=== PATIENT | female | born 1940 | race Two or more races ===

== ENCOUNTER 2024-10-08 15:00 | Outpatient (RCR) | payer MEDICAID, SELFPAY ==
--- NOTE | 2024-09-26 08:27 | PTNOTE_ITS ---
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 Pt still has pain (5/10) with activities. Pt ambulates at home with walker. Pt has limitation with standing, walking, chores, self care, balance, stairs, and performing recreational activities. Objective: Right Hip AROM Flexion: 90 deg Abduction: 45 deg Interal and external rotation: NT Extension: 10 deg Right Hip MMTs: grossly 3/5 Assessment: Pt demonstrate right hip mobility and strength deficits s/p hip surgery leading to difficulty with ADLs. Pt will benefit from physical therapy to increase strength, mobility, and work on ambulation Short Term and [facility] Goals 1) Increase hip AROM WNL in 6 wks to be able to perform self care activities 2) Increase right hip MMTs grossly to 4-/5 in 6 wks to be able to walk more than 30 mins with AD 3) Decrease hip pain to 2/10 in 6 wks to be able to stand more than 30 mins 4) Indep with HEP Treatment Plan 1) Manual Therapy 2) Therapeutic Activities 3) Therapeutic Exercises 4) Modalities (ice, heat) 5) Balance Training 6) Gait Training Frequency and Duration: 2 x wk for 6 wks Certification Dates: 09/26/24 to 12/26/23 Procedure Charges OP PT Eval Mod Complex 30 minutes: Yes
--- NOTE | 2024-10-05 14:45 | PT.ODAYNRPT ---
PT Outpatient Daily Note OP Daily Note Outpatient Physical Therapy Treatment Date: 10/05/24 Visit Reasons: Right hip joint post op Subjective: According to son patient walks 3x 50 ft with 4ww at home. Objective: Please see flow chart for list of ther ex performed Assessment: worked on gait today using FWW. cues to pace and decrease downward gaze. Pt fatigue post PT session Plan: Continue with PT Length of Time (minutes) of Treatment: 30 Minutes Procedure Charges Therapeutic Exercise 30 minutes: Yes
--- NOTE | 2024-10-08 15:34 | PT.ODAYNRPT ---
PT Outpatient Daily Note OP Daily Note Outpatient Physical Therapy Treatment Date: 10/08/24 Visit Reasons: Right hip joint post op Subjective: Pt was exhausted after last session. According to daughter Pt may have dementia. Pt's been hallucinating at night. Objective: Please see flow chart for list of ther ex performed Assessment: increase SOB post PT session; pace patient throughout PT session Plan: Continue with PT Length of Time (minutes) of Treatment: 30 Minutes Procedure Charges Therapeutic Exercise 30 minutes: Yes
== END 2024-10-09 23:59 | disposition home or self-care (01) ==
LOC: CPTX 15:00
PROVIDERS: PCP Orthopaedic Surgery; Referring Provider Orthopaedic Surgery; Visit Provider Orthopaedic Surgery
DX: M25.551 Pain in right hip (principal); R53.1 Weakness; R26.2 Difficulty in walking, not elsewhere classified; R26.89 Other abnormalities of gait and mobility; Z96.641 Presence of right artificial hip joint
CPT/HCPCS: 97110; 97162

== ENCOUNTER 2024-11-09 15:00 | Outpatient (RCR) | payer MEDICAID, SELFPAY ==
--- NOTE | 2024-10-11 16:12 | PT.ODAYNRPT ---
PT Outpatient Daily Note OP Daily Note Outpatient Physical Therapy Treatment Date: 10/11/24 Visit Reasons: Right hip post op Subjective: Pt reports hip pain and discomfort. Objective: Please see flow sheet for ther ex list. Assessment: Pt requires verbal cues and demonstration to stay on task with interventions assigned. Plan: Continue with POC. Length of Time (minutes) of Treatment: 30 Minutes Procedure Charges Therapeutic Exercise 30 minutes: Yes
--- NOTE | 2024-10-15 15:47 | PT.ODAYNRPT ---
PT Outpatient Daily Note OP Daily Note Outpatient Physical Therapy Treatment Date: 10/15/24 Visit Reasons: Right hip post op Subjective: Pt walk daily ~ 100 meters with walker. According to son patient continues to have hip pain and wants to see if she can get a massage . Objective: Please see flow chart for list of ther ex performed Assessment: educated patient hip massage is not indicated at this time due to nature of hip procedure. Pt advised to follow THR protocol and focus more on WB and increasing hip strength at this time. Pt's family gave verbal understanding Plan: Continue with PT Length of Time (minutes) of Treatment: 30 Minutes Procedure Charges Therapeutic Exercise 30 minutes: Yes
--- NOTE | 2024-10-17 15:34 | PT.ODAYNRPT ---
PT Outpatient Daily Note OP Daily Note Outpatient Physical Therapy Treatment Date: 10/17/24 Visit Reasons: Right hip post op Subjective: Pt's body ache everywhere. According to daughter the family decided to stop her from taking a presribed pain medication which was causing hallucination. Daugther does notice patient being more fatigue and tired since the medication was stopped. Family plans to consult with neurologist about the medication ~ 2 weeks. Objective: Please see flow chart for list of ther ex performed Assessment: patient more fatigue than usual. Pt was pace throughout PT session; during GT patient require frequent standing rest breaks. Plan: Continue with PT Length of Time (minutes) of Treatment: 30 Minutes Procedure Charges Therapeutic Exercise 30 minutes: Yes
--- NOTE | 2024-10-22 11:02 | PT.ODAYNRPT ---
PT Outpatient Daily Note OP Daily Note Outpatient Physical Therapy Treatment Date: 10/22/24 Visit Reasons: Right hip post op Subjective: Pt's hip is better. No concerns to report. Objective: Please see flow chart for list of ther ex performed Assessment: tolerate exercises performed needs redirection intermittently with exercises Plan: Continue with PT Length of Time (minutes) of Treatment: 30 Minutes Procedure Charges Therapeutic Exercise 30 minutes: Yes
--- NOTE | 2024-10-26 14:21 | PTNOTE_ITS ---
PT Outpatient Daily Note OP Daily Note Outpatient Physical Therapy Treatment Date: 10/26/24 Visit Reasons: Right hip post op Subjective: Pt's been feeling very drowsy lately. Pt is unsure if it's medication related. Daughter who is her coding and reimbursement specialist was not present in today's session. Pt's son was unable to provide much history. Objective: Please see flow chart for list of ther ex performed Assessment: performed more seated exercises today due to slight lethargic and drowsiness noted during PT session. Pt's daughter not present in today's session to provide much information. Pt performed all seated exercises with frequent cues to complete reps. Plan: Continue with PT Length of Time (minutes) of Treatment: 30 Minutes Procedure Charges Therapeutic Exercise 30 minutes: Yes
--- NOTE | 2024-11-02 15:26 | PT.ODAYNRPT ---
PT Outpatient Daily Note OP Daily Note Outpatient Physical Therapy Treatment Date: 11/02/24 Visit Reasons: Right hip post op Subjective: Pt brought in by daughter. Objective: Please see flow sheet for ther ex list. Assessment: Interventions given alternating sitting and standing to maximize pt participation. Plan: Continue with POC. Length of Time (minutes) of Treatment: 30 Minutes Procedure Charges Therapeutic Exercise 30 minutes: Yes
--- NOTE | 2024-11-05 15:22 | PT.ODAYNRPT ---
PT Outpatient Daily Note OP Daily Note Outpatient Physical Therapy Treatment Date: 11/05/24 Visit Reasons: Right hip post op Subjective: According to daughter in law. Pt is more alert today and was able to have a better night sleep. Objective: Please see flow chart for list of ther ex performed Assessment: difficulty walking backward with decrease stride, cues to increase stride. Pt was able to follow cue intermittently. Pt exhibit fatigue post PT session Plan: Conitnue with PT Length of Time (minutes) of Treatment: 30 Minutes Procedure Charges Therapeutic Exercise 30 minutes: Yes
--- NOTE | 2024-11-09 16:10 | PT.ODAYNRPT ---
PT Outpatient Daily Note OP Daily Note Outpatient Physical Therapy Treatment Date: 11/09/24 Visit Reasons: Right hip post op Subjective: Pt c/o lumbar and hip pain L>R. Objective: Please see flow sheet for there x list. Assessment: Performed STM to lateral l/s and B hip, pt tolerated well and reported decrease pain. Plan: Continue with POC. Length of Time (minutes) of Treatment: 30 Minutes Procedure Charges Therapeutic Exercise 30 minutes: Yes
== END 2024-11-09 23:59 | disposition home or self-care (01) ==
LOC: CPTX 15:00
PROVIDERS: PCP Orthopaedic Surgery; Referring Provider Orthopaedic Surgery; Visit Provider Orthopaedic Surgery
DX: M25.551 Pain in right hip (principal); R53.1 Weakness; R26.2 Difficulty in walking, not elsewhere classified; Z96.641 Presence of right artificial hip joint; R26.89 Other abnormalities of gait and mobility
CPT/HCPCS: 97110

== ENCOUNTER 2024-11-14 13:14 | Outpatient (RCR) | payer MEDICAID, SELFPAY ==
--- NOTE | 2024-11-14 14:46 | PT.ODS1RPT ---
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 Pt has been able to walk with walker around and outside of the house. According to family patient has not fallen at home and able to assist more with ADLs. Objective: Right Hip AROM: all motions are WFL Right Hip MMTs: grossly 4-/5 Assessment: Pt demonstrate functional hip mobility and strength allowing her to resume ADLs with less limitation. Pt will no longer benefit from physical therapy due to plateau towards goals. Pt's family was instructed on HEP last session and educated to continue exercises to maintain overall mobility. Pt performed all exercises safely; thank you for your referrals. Plan: D/C home and follow up with MD PEDRO Procedure Charges Therapeutic Exercise 30 minutes: Yes
== END 2024-12-07 23:59 | disposition home or self-care (01) ==
LOC: CPTX 13:14
PROVIDERS: PCP Orthopaedic Surgery; Referring Provider Orthopaedic Surgery; Visit Provider Orthopaedic Surgery
DX: M25.551 Pain in right hip (principal); R53.1 Weakness; R26.2 Difficulty in walking, not elsewhere classified; R26.89 Other abnormalities of gait and mobility; Z96.641 Presence of right artificial hip joint
CPT/HCPCS: 97110